=== PATIENT | female | born 1990 | race Caucasian/White ===

== ENCOUNTER 2017-09-10 12:39 | Outpatient (CLI) | payer BC | END 2017-09-10 12:40 | disposition home or self-care (01) | LOC: BICULT 12:39 | PROVIDERS: ATTEND Student in an Organized Health Care Education/Training Program | DX: E04.1 Nontoxic single thyroid nodule (principal) | CPT/HCPCS: 76536 ==

== ENCOUNTER 2019-09-22 13:47 | Outpatient (CLI) | payer BC ==
--- NOTE | 2019-09-22 16:00 | ULT ---
ULTRASOUND THYROID: DATE: 09/22/2019. HISTORY: ICD-10: E04.1, nontoxic single thyroid nodule in a 28-year-old female. Dr. Mcmillan left a message on the voice mail of [facility] at 2:46 p.m. on 020 regarding the findings. Because of uncertainty whether the clinical was closed medical terminologist because of the Covid-[address] pandemic, Dr Blane Mcmillan telephoned the patient, and discussed the findings and recommendation for biopsy, and recommend ed that she contact her health care provider. COMPARISON: 09/10/2017. FINDINGS: Isthmus: 0.4 cm AP. Right lobe: 4.8 x 1.7 x 1.7 cm. Left lobe: 4.5 x 1.4 x 1.4 cm. At the central portion of the mid pole of the right lobe, there is a 1.5 x 0.8 x 0.9 cm solid nodule (with blood flow demonstrated by Doppler). TIRADS scoring: Composition: Mixed solid and cystic: 1 point. Echogenicity: Hypoechoic: 2 points. Shape: Wider than tall: 0 points. Margin: Smooth: 0 points. Echogenic foci: None: 0 points. Total points: 3. TIRADS category 3: Mildly suspicious. RECOMMENDATION: Fine needle aspirate if greater than or equal to 2.5 cm. Followup if greater than or equal to 1.5 cm (at 1, 3, and 5 years). This has been stable for 2 years. In order to stay on track for the recommendation, the 3-year followup will be recommended for next ye ar (2020). At the right side of the isthmus, there is a new 0.9 x 0.6 x 0.6 cm solid nodule. It is not found on any of the images of the 09/10/2017 ultrasound. TIRADS scoring: Composition: Solid: 2 points. Echogenicity: Very hypoechoic: 3 points. Shape: Wider than tall: 0 points. Margin: Lobulated or irregular: 2 points. Echogenic foci: Macrocalcification: 1 point. Total points: 8 TIRADS category 5: Highly suspicious. RECOMMENDATION: FNA if greater than or equal to 1 cm. Followup if greater than or equal to 0.5 cm (every year up to 5 years). Although this lesion is less than 1 cm, it is very superficially located, and should be readily acces sible to percutaneous fine needle aspiration. IMPRESSION: 1. A new, 0.9 cm TIRADS category 5 highly suspicious small nodule at the right side of the thyroid i sthmus. Ultrasound guided fine needle aspiration biopsy is recommended to rule out differentiated th yroid cancer. 2. The TIRADS 3 nodule in the central portion of the right mid pole is unchanged for 2 years. Recom mend 2 additional followup thyroid ultrasounds in September of 2020, and 2022. CODE CR POS: JIN
== END 2019-09-22 13:48 | disposition home or self-care (01) ==
LOC: BICULT 13:47
PROVIDERS: ATTEND Student in an Organized Health Care Education/Training Program
DX: E04.1 Nontoxic single thyroid nodule (principal)
CPT/HCPCS: 76536

== ENCOUNTER 2019-11-01 12:42 | Day surgery (SDC) | payer BC ==
[2019-10-31 13:41] VITALS: BMI 21.9
[2019-11-01] MEDS ORDERED: Sodium Bicarbonate 2.5 MEQ/5 ML VIAL ONE (13:30)
[2019-11-01] MEDS ORDERED: Lidocaine 1% PF 5 ML VIAL ONE (13:30)
[2019-11-01 14:25] VITALS: BP 103/65; TEMP 97.9
--- NOTE | 2019-11-01 15:25 | ULT ---
Sonographic guided FNA right thyroid nodule HISTORY: Thyroid mass. FINDINGS: After explaining the procedure and answering all questions, the heterogeneous new oval hypo echoic mass at the right side of the thyroid isthmus/medial aspect of the right thyroid lobe was again visualized. Sterile technique, buffered local anesthesia, sonographic guidance, and a medial approach were used t o carefully advance a 25-gauge needle into the lesion. Position was confirmed with sonogram. Fine-needle aspirate was obtained and submitted to pathology personnel. A total of 4 passes were made . Postprocedure imaging shows no evidence of complication. Patient tolerated the procedure well and was dismissed in good condition IMPRESSION: Technically successful sonographic guided FNA right thyroid nodule. Pathology is pending.
== END 2019-11-01 14:00 | disposition home or self-care (01) ==
LOC: ULT 12:42
PROVIDERS: ATTEND Student in an Organized Health Care Education/Training Program
PROC: 0G9H3ZX Drainage of Right Thyroid Gland Lobe, Percutaneous Approach, Diagnostic (ICD-10-PCS; principal; 2019-11-01)
PROC: BG44ZZZ Ultrasonography of Thyroid Gland (ICD-10-PCS; principal; 2019-11-01)
DX: E04.1 Nontoxic single thyroid nodule (principal); I73.00 Raynaud's syndrome without gangrene
CPT/HCPCS: 60100; 76942; 88173; J2001